=== PATIENT | male | born 1955 | race Caucasian/White ===

== ENCOUNTER 2024-09-15 10:23 | Emergency (ER) | payer MEDICARE, MEDICAID ==
[~2024-09-15] VITALS: Ht 165.1 cm; Wt 77.0 kg
[2024-09-15 10:30] VITALS: O2SAT 99
[2024-09-15 11:08] LABS: BASOPHILS % 0.3 % (0.0-2.0); EOSINOPHILS % 0.8 % (0.0-5.0); HEMATOCRIT. 38.6 % (42.0-52.0); HEMOGLOBIN. 12.9 g/dL (14.0-18.0); LYMPHOCYTES % 15.3 % (20.0-50.0); MEAN CORPUSCULAR HEMOGLOBIN 31.8 pg (28.0-32.0); MEAN CORPUSCULAR HGB CONC 33.5 g/dL (31.0-37.0); MEAN CORPUSCULAR VOLUME 94.8 fL (80.0-94.0); MEAN PLATELET VOLUME 9.2 fl (7.4-10.4); MONOCYTES % 7.3 % (2.0-8.0); NEUTROPHILS % 76.3 % (40.0-76.0); PLATELET 255 x1000/uL (130-400); RED BLOOD CELL COUNT 4.07 mill/uL (4.7-6.1); RED CELL DISTRIBUTION WIDTH 14.2 % (11.6-14.6); WHITE BLOOD COUNT 11.1 x1000/uL (4.5-11.0)
[2024-09-15 11:15] LABS: CHLORIDE 108 mEq/L (98-107); POTASSIUM 4.1 mEq/L (3.5-5.1); SODIUM 140 mEq/L (136-145)
[2024-09-15 11:16] LABS: CARBON DIOXIDE 21 mEq/L (21-32)
[2024-09-15 11:17] LABS: CALCIUM 8.6 mg/dL (8.7-10.4)
[2024-09-15 11:22] LABS: CREATININE 0.9 mg/dL (0.6-1.3); GLUCOSE 117 mg/dL (70-105); UREA NITROGEN BLOOD 29 mg/dL (9-23)
[2024-09-15] MEDS: DEXT 10% WATER 500 ML IV SCH (13:33)
[2024-09-15 15:15] VITALS: BP 155/79; PULSE 73; RESP 16; TEMP 37; O2SAT 99
== END 2024-09-15 15:37 | disposition home or self-care (01) ==
LOC: ER 10:48
DX: E11.649 Type 2 diabetes mellitus with hypoglycemia without coma (principal); I10 Essential (primary) hypertension
CPT/HCPCS: 36415; 80048; 82962; 85025; 96365; 99283; 99284